=== PATIENT | female | born 1950 | race Asian ===

== ENCOUNTER 2022-10-06 09:53 | Emergency (ER) | payer OTHER, MEDICARE ==
[~2022-10-06] VITALS: Ht 162.6 cm; Wt 62.1 kg
[2022-10-06 09:57] VITALS: BP_SYST 149
[2022-10-06 10:36] LABS: BASOPHILS # (AUTO) 0.1 K/uL (0.0-0.2); EOSINOPHILS # (AUTO) 0.8 K/uL (0.0-0.4); EOSINOPHILS % (AUTO) 8.4 % (0.0-4.0); HEMATOCRIT 35.5 % (36-48); HEMOGLOBIN 11.4 g/dL (12.0-16.0); LYMPHOCYTES # (AUTO) 3.2 K/uL (1.0-5.5); LYMPHOCYTES % (AUTO) 33.4 % (20.5-51.5); MEAN CORPUSCULAR HEMOGLOBIN 27 pg (27-31); MEAN CORPUSCULAR HGB CONC 32 % (32-36); MEAN CORPUSCULAR VOLUME 84 fL (79.0-98.0); MONOCYTES # (AUTO) 0.7 K/uL (0.0-1.0); MONOCYTES % (AUTO) 7.1 % (1.7-9.3); NEUTROPHILS # (AUTO) 4.8 K/uL (1.8-7.7); NEUTROPHILS % (AUTO) 50.1 % (40.0-70.0); PLATELET COUNT (AUTO) 415 K/uL (130-430); RED BLOOD CELL COUNT(AUTO) 4.23 MIL/uL (4.2-6.2); RED CELL DISTRIBUTION WIDTH 15.1 % (9.0-15.0); WHITE BLOOD COUNT (AUTO) 9.6 K/uL (4.8-10.8)
[2022-10-06 10:48] LABS: ANION GAP 8 (5-15); CHLORIDE 99 mmol/L (98-107); CREATININE 0.68 mg/dL (0.55-1.30); GLUCOSE 130 mg/dL (70-99); UREA NITROGEN, BLOOD 7 mg/dL (8-21)
[2022-10-06 10:55] LABS: ALANINE AMINOTRANSFERASE 29 U/L (12-78); ALBUMIN 3.8 g/dL (3.4-4.8); ASPARTATE AMINOTRANSFERASE 22 U/L (10-37); TOTAL BILIRUBIN 0.2 mg/dL (0.0-1.0)
[2022-10-06] MEDS ORDERED: iohexoL 350 mgI/mL, 100 ML INFUS..BTL IV ONE (11:36)
[2022-10-06] MEDS: LIDOCAINE PATCH 5% 1 EA TP ONE (12:43)
[2022-10-06] MEDS: KETOROLAC TROMETHAMINE 15 MG VIAL IVP ONE (12:43)
[2022-10-06] MEDS ORDERED: LIDO1ADH22 TP (13:44)
[2022-10-06] MEDS ORDERED: IBUP-1968 PO (13:44)
== END 2022-10-06 14:10 | disposition home or self-care (01) ==
LOC: SED 09:53
DX: S20.213A Contusion of bilateral front wall of thorax, initial encounter (principal); Z88.2 Allergy status to sulfonamides; Z79.899 Other long term (current) drug therapy; V49.49XA Driver injured in collision with other motor vehicles in traffic accident, initial encounter; Y93.89 Activity, other specified; Y92.89 Other specified places as the place of occurrence of the external cause; Y99.8 Other external cause status
CPT/HCPCS: 99285; 71260; 96374; 80053; 85025; 84484; 36415; 93005; 76376; 74177; Q9967; J1885